=== PATIENT | male | born 1965 | race Caucasian/White ===

== ENCOUNTER 2025-04-11 00:06 | Outpatient (CLI) | payer SELFPAY ==
[2025-04-11 08:16] LABS: Abs Immature Grans 0.01 10^3/uL (0.0-0.06); HCT 41.3 % (40.0-50.0); HGB 13.1 g/dL (13.5-17.5); Immature Grans % 0.1 %; MCH 28.2 pg (27.0-33.0); MCHC 31.7 % (32.0-36.0); MCV 89 fL (80-95); MPV 9.0 fL (8.0-11.0); Platelet Count 256 10^3/uL (130-400); RBC 4.65 10^6/uL (4.36-5.78); RDW 12.7 % (11.8-14.1); RDW-SD 41.5 fL; WBC 6.71 10^3/uL (4.4-10.8)
[2025-04-11 08:30] LABS: ALT 34 U/L (16-63); AST 22 U/L (15-37); Albumin 3.7 g/dL (3.4-5.0); Alkaline Phosphatase 123 U/L (46-116); Anion Gap 8.3 mmol/L (3-11); BUN 11 mg/dL (7-18); Bilirubin, Total 0.7 mg/dL (0.2-1.0); CO2 27.7 mmol/L (21.0-32.0); Calcium 9.0 mg/dL (8.5-10.1); Chloride 102 mmol/L (98-107); Estimated GFR 100.06 (mL/min/1.73m2); Glucose 111 mg/dL (74-106); Magnesium 2.0 mg/dL (1.8-2.4); Potassium 4.5 mmol/L (3.5-5.1); Sodium 138 mmol/L (136-145); Total Protein 7.8 g/dL (6.4-8.2)
== END 2025-04-11 00:07 | disposition home or self-care (01) ==
PROVIDERS: Visit Provider Internal Medicine Medical Oncology
DX: C34.12 Malignant neoplasm of upper lobe, left bronchus or lung (principal)
CPT/HCPCS: 36415; 80053; 83735; 85025

== ENCOUNTER 2025-04-18 01:17 | Outpatient (CLI) | payer SELFPAY ==
[2025-04-18 08:09] LABS: Abs Immature Grans 0.07 10^3/uL (0.0-0.06); HCT 39.7 % (40.0-50.0); HGB 12.3 g/dL (13.5-17.5); Immature Grans % 1.3 %; MCH 28.3 pg (27.0-33.0); MCHC 31.0 % (32.0-36.0); MCV 92 fL (80-95); MPV 9.4 fL (8.0-11.0); Platelet Count 280 10^3/uL (130-400); RBC 4.34 10^6/uL (4.36-5.78); RDW 12.6 % (11.8-14.1); RDW-SD 41.5 fL; WBC 5.45 10^3/uL (4.4-10.8)
[2025-04-18 08:19] LABS: ALT 33 U/L (16-63); AST 20 U/L (15-37); Albumin 3.6 g/dL (3.4-5.0); Alkaline Phosphatase 119 U/L (46-116); Anion Gap 7.8 mmol/L (3-11); BUN 11 mg/dL (7-18); Bilirubin, Total 0.7 mg/dL (0.2-1.0); CO2 30.2 mmol/L (21.0-32.0); Calcium 9.3 mg/dL (8.5-10.1); Chloride 103 mmol/L (98-107); Estimated GFR 100.06 (mL/min/1.73m2); Glucose 108 mg/dL (74-106); Magnesium 2.0 mg/dL (1.8-2.4); Potassium 5.1 mmol/L (3.5-5.1); Sodium 141 mmol/L (136-145); Total Protein 7.7 g/dL (6.4-8.2)
== END 2025-04-18 01:18 | disposition home or self-care (01) ==
LOC: LBO 01:17
PROVIDERS: Visit Provider Internal Medicine Medical Oncology
DX: C34.12 Malignant neoplasm of upper lobe, left bronchus or lung (principal)
CPT/HCPCS: 36415; 80053; 83735; 85025

== ENCOUNTER 2025-04-25 01:21 | Outpatient (CLI) | payer SELFPAY ==
[2025-04-25 10:28] LABS: Abs Immature Grans 0.02 10^3/uL (0.0-0.06); HCT 38.1 % (40.0-50.0); HGB 12.2 g/dL (13.5-17.5); Immature Grans % 0.4 %; MCH 29.4 pg (27.0-33.0); MCHC 32.0 % (32.0-36.0); MCV 92 fL (80-95); MPV 9.1 fL (8.0-11.0); Platelet Count 236 10^3/uL (130-400); RBC 4.15 10^6/uL (4.36-5.78); RDW 12.7 % (11.8-14.1); RDW-SD 41.6 fL; WBC 4.61 10^3/uL (4.4-10.8)
[2025-04-25 10:45] LABS: ALT 27 U/L (16-63); AST 13 U/L (15-37); Albumin 3.4 g/dL (3.4-5.0); Alkaline Phosphatase 124 U/L (46-116); Anion Gap 6.5 mmol/L (3-11); BUN 9 mg/dL (7-18); Bilirubin, Total 1.7 mg/dL (0.2-1.0); CO2 28.5 mmol/L (21.0-32.0); Calcium 9.3 mg/dL (8.5-10.1); Chloride 102 mmol/L (98-107); Glucose 108 mg/dL (74-106); Magnesium 1.8 mg/dL (1.8-2.4); Potassium 4.5 mmol/L (3.5-5.1); Sodium 137 mmol/L (136-145); Total Protein 7.8 g/dL (6.4-8.2)
== END 2025-04-25 01:22 | disposition home or self-care (01) ==
LOC: LBO 01:21
PROVIDERS: Visit Provider Internal Medicine Medical Oncology
DX: C34.12 Malignant neoplasm of upper lobe, left bronchus or lung (principal)
CPT/HCPCS: 36415; 80053; 83735; 85025

== ENCOUNTER 2025-05-02 00:33 | Outpatient (CLI) | payer SELFPAY ==
[2025-05-02 07:53] LABS: Abs Immature Grans 0.03 10^3/uL (0.0-0.06); HCT 37.2 % (40.0-50.0); HGB 11.7 g/dL (13.5-17.5); Immature Grans % 0.7 %; MCH 28.4 pg (27.0-33.0); MCHC 31.5 % (32.0-36.0); MCV 90 fL (80-95); MPV 9.0 fL (8.0-11.0); Platelet Count 263 10^3/uL (130-400); RBC 4.12 10^6/uL (4.36-5.78); RDW 12.7 % (11.8-14.1); RDW-SD 41.5 fL; WBC 4.13 10^3/uL (4.4-10.8)
[2025-05-02 08:11] LABS: ALT 32 U/L (16-63); AST 15 U/L (15-37); Albumin 3.4 g/dL (3.4-5.0); Alkaline Phosphatase 132 U/L (46-116); Anion Gap 7.5 mmol/L (3-11); BUN 15 mg/dL (7-18); Bilirubin, Total 0.8 mg/dL (0.2-1.0); CO2 29.5 mmol/L (21.0-32.0); Calcium 9.0 mg/dL (8.5-10.1); Chloride 103 mmol/L (98-107); Glucose 106 mg/dL (74-106); Magnesium 1.9 mg/dL (1.8-2.4); Potassium 4.4 mmol/L (3.5-5.1); Sodium 140 mmol/L (136-145); Total Protein 8.0 g/dL (6.4-8.2)
== END 2025-05-02 00:34 | disposition home or self-care (01) ==
PROVIDERS: Visit Provider Internal Medicine Medical Oncology
DX: C34.12 Malignant neoplasm of upper lobe, left bronchus or lung (principal)
CPT/HCPCS: 36415; 80053; 83735; 85025

== ENCOUNTER 2025-05-08 02:05 | Outpatient (CLI) | payer SELFPAY ==
[2025-05-08 07:42] LABS: Abs Immature Grans 0.05 10^3/uL (0.0-0.06); HCT 36.6 % (40.0-50.0); HGB 11.6 g/dL (13.5-17.5); Immature Grans % 1.1 %; MCH 28.8 pg (27.0-33.0); MCHC 31.7 % (32.0-36.0); MCV 91 fL (80-95); MPV 8.8 fL (8.0-11.0); Platelet Count 199 10^3/uL (130-400); RBC 4.03 10^6/uL (4.36-5.78); RDW 12.9 % (11.8-14.1); RDW-SD 41.5 fL; WBC 4.75 10^3/uL (4.4-10.8)
[2025-05-08 07:57] LABS: Magnesium 1.5 mg/dL (1.6-2.6)
[2025-05-08 07:59] LABS: ALT 26 U/L (10-49); AST 20 U/L (<34); Albumin 4.5 g/dL (3.4-5.0); Alkaline Phosphatase 110 U/L (46-116); Anion Gap 8.2 mmol/L (3-11); BUN 11 mg/dL (9-23); Bilirubin, Total 0.90 mg/dL (0.2-1.2); CO2 27.8 mmol/L (20.0-31.0); Calcium 9.3 mg/dL (8.3-10.6); Chloride 104 mmol/L (98-107); Glucose 105 mg/dL (74-106); Potassium 4.4 mmol/L (3.5-5.1); Sodium 140 mmol/L (136-145); Total Protein 7.5 g/dL (5.7-8.2)
== END 2025-05-08 02:06 | disposition home or self-care (01) ==
LOC: LBO 02:05
PROVIDERS: Visit Provider Internal Medicine Medical Oncology
DX: C34.12 Malignant neoplasm of upper lobe, left bronchus or lung (principal)
CPT/HCPCS: 36415; 80053; 83735; 85025

== ENCOUNTER 2025-05-15 03:56 | Outpatient (CLI) | payer SELFPAY ==
[2025-05-15 07:39] LABS: Abs Immature Grans 0.02 10^3/uL (0.0-0.06); HCT 34.0 % (40.0-50.0); HGB 11.2 g/dL (13.5-17.5); Immature Grans % 0.5 %; MCH 29.9 pg (27.0-33.0); MCHC 32.9 % (32.0-36.0); MCV 91 fL (80-95); MPV 8.7 fL (8.0-11.0); Platelet Count 196 10^3/uL (130-400); RBC 3.75 10^6/uL (4.36-5.78); RDW 13.3 % (11.8-14.1); RDW-SD 43.0 fL; WBC 4.18 10^3/uL (4.4-10.8)
[2025-05-15 07:58] LABS: Magnesium 1.4 mg/dL (1.6-2.6)
[2025-05-15 07:59] LABS: ALT 24 U/L (10-49); AST 17 U/L (<34); Albumin 4.5 g/dL (3.4-5.0); Alkaline Phosphatase 112 U/L (46-116); Anion Gap -0.2 mmol/L (3-11); BUN 21 mg/dL (9-23); Bilirubin, Total 1.00 mg/dL (0.2-1.2); CO2 26.2 mmol/L (20.0-31.0); Calcium 9.7 mg/dL (8.3-10.6); Chloride 109 mmol/L (98-107); Glucose 110 mg/dL (74-106); Potassium 5.3 mmol/L (3.5-5.1); Sodium 135 mmol/L (136-145); Total Protein 7.5 g/dL (5.7-8.2)
[2025-05-15 08:01] LABS: TSH 0.86 uIU/mL (0.55-4.78)
== END 2025-05-15 03:57 | disposition home or self-care (01) ==
LOC: LBO 03:57
PROVIDERS: Visit Provider Internal Medicine Medical Oncology
DX: C34.12 Malignant neoplasm of upper lobe, left bronchus or lung (principal); Z79.899 Other long term (current) drug therapy
CPT/HCPCS: 36415; 80053; 83735; 84439; 84443; 85025

== ENCOUNTER 2025-06-05 00:53 | Outpatient (CLI) | payer SELFPAY ==
[2025-06-05 08:21] LABS: Abs Immature Grans 0.03 10^3/uL (0.0-0.06); HCT 32.2 % (40.0-50.0); HGB 10.2 g/dL (13.5-17.5); Immature Grans % 0.8 %; MCH 29.0 pg (27.0-33.0); MCHC 31.7 % (32.0-36.0); MCV 92 fL (80-95); MPV 8.8 fL (8.0-11.0); Platelet Count 319 10^3/uL (130-400); RBC 3.52 10^6/uL (4.36-5.78); RDW 14.8 % (11.8-14.1); RDW-SD 48.4 fL; WBC 3.78 10^3/uL (4.4-10.8)
[2025-06-05 08:40] LABS: Magnesium 1.6 mg/dL (1.6-2.6)
[2025-06-05 08:42] LABS: ALT 25 U/L (10-49); AST 23 U/L (<34); Albumin 4.1 g/dL (3.2-5.0); Alkaline Phosphatase 103 U/L (46-116); Anion Gap 7.5 mmol/L (3-11); BUN 11 mg/dL (9-23); Bilirubin, Total 0.5 mg/dL (0.2-1.2); CO2 29.5 mmol/L (20.0-31.0); Calcium 9.3 mg/dL (8.3-10.6); Chloride 104 mmol/L (98-107); Glucose 102 mg/dL (74-106); Potassium 4.6 mmol/L (3.5-5.1); Sodium 141 mmol/L (136-145); Total Protein 7.1 g/dL (5.7-8.2)
[2025-06-05 08:46] LABS: TSH 0.84 uIU/mL (0.55-4.78)
== END 2025-06-05 00:54 | disposition home or self-care (01) ==
LOC: LBO 00:53
PROVIDERS: Internal Medicine Medical Oncology; Visit Provider Nurse Practitioner Family
DX: C34.12 Malignant neoplasm of upper lobe, left bronchus or lung (principal); Z79.899 Other long term (current) drug therapy
CPT/HCPCS: 36415; 80053; 83735; 84439; 84443; 85025